=== PATIENT | female | born 1990 | race Caucasian/White ===

== ENCOUNTER 2019-06-01 07:52 | Inpatient (IN) | payer OTHER ==
[~2019-06-01] VITALS: Ht 172.7 cm; Wt 90.7 kg
[~2019-06-01 07:52] MED LIST: ALDOMET500 MG PO; AMOXICILLIN500 MG PO; LABETALOL HCL200 MG PO; XYZAL5 MG PO
[2019-06-01] MEDS ORDERED: LEVOTHYROXINE25 MCG (07:57)
== END 2019-06-02 13:15 | DRG 310 ==
LOC: ER 07:52 → ICU-2 15:38
PROVIDERS: ADMIT Specialist
PROC: B246ZZZ Ultrasonography of Right and Left Heart (ICD-10-PCS; principal; 2019-06-01)
DX: I48.0 Paroxysmal atrial fibrillation (principal); R00.2 Palpitations; I10 Essential (primary) hypertension; E03.8 Other specified hypothyroidism